=== PATIENT | female | born 1970 | race Native Hawaiian/Other Pacific Islander ===

== ENCOUNTER 2016-12-14 18:10 | Outpatient (CLI) | payer OTHER | END 2016-12-14 19:20 | disposition home or self-care (01) | LOC: US 18:10 | DX: R60.0 Localized edema (principal); M79.662 Pain in left lower leg ==

== ENCOUNTER 2017-01-09 20:34 | Emergency (ER) | payer OTHER ==
[~2017-01-09] VITALS: Ht 167.6 cm; Wt 72.6 kg
[2017-01-09 21:18] LABS: PLATELET COUNT 186 K/uL (152-353)
[2017-01-09 21:31] LABS: POTASSIUM 2.9 mmol/L (3.6-5.2)
[2017-01-10 00:18] VITALS: BP 119/66; TEMP 99
[2017-01-10] MEDS ORDERED: HYDR10TA47A PO (15:01)
[2017-01-10] MEDS ORDERED: MORPHINE SUL30 MG PO (15:01)
[2017-01-10] MEDS ORDERED: LYRICA75 MG PO (15:02)
[2017-01-10] MEDS ORDERED: ZESTRIL40 MG PO (15:02)
[2017-01-10] MEDS ORDERED: CYCL10TA35 PO (15:03)
== END 2017-01-10 00:20 | disposition home or self-care (01) ==
LOC: ED 20:34
DX: N10 Acute pyelonephritis (principal); R11.2 Nausea with vomiting, unspecified
CPT/HCPCS: 36415; 80053; 81000; 82150; 83690; 85027; 96361; 96365; 96375; 99284; J0696; J1885; J2405; J2550

== ENCOUNTER 2017-01-10 10:53 | Observation (INO) | payer OTHER ==
[2017-01-10] VITALS (7 sets, daily range): BP systolic 98–128; BP diastolic 61–82; TEMP 99.1–100.2; Ht 167.6 cm; Wt 74.8 kg
[~2017-01-10] VITALS: Ht 167.6 cm; Wt 74.8 kg
[2017-01-10 12:01] LABS: PLATELET COUNT 156 K/uL (152-353)
[2017-01-10 12:08] LABS: POTASSIUM 3.5 mmol/L (3.6-5.2)
--- NOTE | 2017-01-10 14:58 | NUR ---
PT TO ROOM 1107 VIA WC FROM ER. ORIENTED PT TO ROOM AND CONTROLS. ASSESSMENT COMPLETE AT THIS TIME. IV INTACT TO R AC. PT ALERT AND ORIENTED. WILL MONITOR.
[2017-01-10] MEDS ORDERED: MORPHINE SUL30 MG PO (15:01)
[2017-01-10] MEDS ORDERED: HYDR10TA47A PO (15:01)
[2017-01-10] MEDS ORDERED: LYRICA75 MG PO (15:02)
[2017-01-10] MEDS ORDERED: ZESTRIL40 MG PO (15:02)
[2017-01-10] MEDS ORDERED: CYCL10TA35 PO (15:03)
--- NOTE | 2017-01-10 17:32 | NUR ---
TEMP RECHECKED- 102.6 DR MARI NOTIFIED AND NEW ORDERS GIVEN TO ZOLTAN COSTELLO RN
--- NOTE | 2017-01-10 18:31 | NUR ---
TEMP RECHECKED. 99.9 A THIS TIME
[2017-01-11] VITALS: BP 128/85; TEMP 100.1
[2017-01-11 04:00] VITALS: BP 115/80; TEMP 99
[2017-01-11 06:31] LABS: PLATELET COUNT 122 K/uL (152-353)
[2017-01-11 06:51] LABS: POTASSIUM 3.1 mmol/L (3.6-5.2); SODIUM 133 mmol/L (136-145)
[2017-01-11 08:00] VITALS: BP 123/78; TEMP 98
[2017-01-11 12:00] VITALS: BP 129/77; TEMP 98.5
--- NOTE | 2017-01-11 13:47 | NUR ---
DC INSTRUCTIONS GIVEN TO PT AND FAMILY. RX GIVEN TO PT. IV DC'D WITH CANNULA INTACT AND SITE CARE PROVIDED. NAD NOTED. PT LEFT AMBULATORY REQUESTED. NAD NOTED.
== END 2017-01-11 13:40 | disposition home or self-care (01) ==
LOC: ED 10:53 → MED/SURG 13:19
PROVIDERS: Emergency Medicine; ADMIT Specialist
DX: A41.89 Other specified sepsis (principal); N10 Acute pyelonephritis; M54.89 Other dorsalgia; R11.10 Vomiting, unspecified
CPT/HCPCS: 36415; 80048; 80053; 81000; 83735; 85027; 85651; 87040; 87088; 96361; 96365; 96366; 96367; 96374; 96375; 99220; 99284; G0378; J0744; J1885; J2175; J2405